=== PATIENT | female | born 1990 | race Caucasian/White ===

== ENCOUNTER 2017-01-12 07:01 | Inpatient (IN) | payer BC ==
[2017-01-12] MEDS ORDERED: LIDOCAINE HCL 50 ML VIAL PERI PRN (07:57)
[2017-01-12] MEDS ORDERED: RINGERS SOLUTION,LACTATED 1,000 ML IV ONE (07:57)
[2017-01-12] MEDS ORDERED: OXYTOCIN/DEXTROSE 5%-WATER 30 UNITS/500 ML BAG IV ONE (07:57)
[2017-01-12] MEDS ORDERED: MISOPROSTOL 100 MCG TABLET VG PRN (08:13)
[2017-01-12 08:14] LABS: Hematocrit 35.4 % (37.0-47.0); Hemoglobin 10.8 gm/dL (12.5-16.0); Mean Corpuscular Hemoglobin 23.2 pg (27-31); Mean Corpuscular Hgb Conc 30.5 g/dl (32-36); Mean Platelet Volume 11.3 fl (6.0-9.5); Neutrophil # 8.7 K/mm3 (1.3-6.0); Neutrophil % 75.4 % (42-75.0); Platelet Count 274 K/mm3 (150-450); Red Blood Count 4.66 M/mm3 (4.2-5.4); Red Cell Distribution Width 15.1 % (11.5-14.0); White Blood Count 11.5 K/mm3 (4.0-10.5)
[2017-01-12] MEDS: RINGERS SOLUTION,LACTATED 1,000 ML IV PRN ×2 (13:49→21:29)
--- NOTE | 2017-01-12 16:52 | PN ---
Subjective - Date and Time Seen Date: 01/12/17 Subjective Narrative: Labor note. Patient seen at admission and at 4 pm. 26 yo, CF, G1 at 40 6/7 weeks, admitted for induction for post date. cervix: 2/50/-2 at admission. GBS negative. s/p Cytotec 25 mg pv x 1 (placed at 8:30 am) currently on pitocin at 4 mu/min Contractions: q2-3 min. Rated pain 3/10 at the time. FHR: reassuring, 130s with accels. Cervix: 2/50/-1, head down a little bit and cervix less posterior. Plan: will continue pitocin as tolerated. Tyrone Roberson MD Objective - Abnormal Lab Findings Abnormal Lab Findings: Abnormal Lab Results 01/12/17 Range/Units 08:10 WBC 11.5 H (4.0-10.5) K/mm3 Hgb 10.8 L (12.5-16.0) gm/dL Hct 35.4 L (37.0-47.0) % MCV 76.0 L (78-100) fl MCH 23.2 L (27-31) pg MCHC 30.5 L (32-36) g/dl RDW 15.1 H (11.5-14.0) % MPV 11.3 H (6.0-9.5) fl Immature Gran # (Auto) 0.05 H (0.000-0.0310) K/mm3 Neutrophils % 75.4 H (42-75.0) % Lymphocytes % 15.8 L (20-51) % Neutrophils # 8.7 H (1.3-6.0) K/mm3
--- NOTE | 2017-01-12 18:20 | PN ---
Subjective - Date and Time Seen Date: 01/12/17 Subjective Narrative: Labor note. Patient seen and evaluated. 26 yo, CF, G1 at 40 6/7 weeks, admitted for induction for post date. cervix: 2/50/-2 at admission. GBS negative. s/p Cytotec 25 mg pv x 1 (placed at 8:30 am) currently on pitocin at 8 mu/min has been paulette all day q2-3 min and now q2 min. FHR: overall reassuring, but baseline appeared to go up to 180s, could be a prolonged accels. Cervix: 2/50/-1. made minimal cervical change manager 8-10 hours despite regular contractions. Pubic arch appeared narrow. discussed she is still in the latent phase of labor, but if she continued to make no change in the next 4-6 hours, she is at risk of a section. Patient and voiced understanding. All questions answered. Plan: attempted to place a Palmer bulb to aid pitocin for induction, but was not able to pass the Palmer bulb through the cervix entirely. will continue pitocin as tolerated. Tyrone Roberson MD Objective - Abnormal Lab Findings Abnormal Lab Findings: Abnormal Lab Results 01/12/17 Range/Units 08:10 WBC 11.5 H (4.0-10.5) K/mm3 Hgb 10.8 L (12.5-16.0) gm/dL Hct 35.4 L (37.0-47.0) % MCV 76.0 L (78-100) fl MCH 23.2 L (27-31) pg MCHC 30.5 L (32-36) g/dl RDW 15.1 H (11.5-14.0) % MPV 11.3 H (6.0-9.5) fl Immature Gran # (Auto) 0.05 H (0.000-0.0310) K/mm3 Neutrophils % 75.4 H (42-75.0) % Lymphocytes % 15.8 L (20-51) % Neutrophils # 8.7 H (1.3-6.0) K/mm3
[2017-01-13] MEDS: RINGERS SOLUTION,LACTATED 1,000 ML IV PRN (05:35)
[2017-01-13] MEDS ORDERED: DEXTROSE 5%-LACTATED RINGERS 1,000 ML IV PRN (06:26)
--- NOTE | 2017-01-13 08:06 | PN ---
Subjective - Date and Time Seen Date: 01/13/17 Subjective Narrative: Indication for : 26 yo, CF, G1 at 41 weeks, induced for over 24 hours with arrest of dilatation and descent for over 20 hours. Cervix remained at 2 cm, 60% and -2 despite regular contractions the entire time. Patient agreed to proceed for . Risks and benefits discussed with patient. Patient accepted the risks for planned . Tyrone Roberson MD Objective - Abnormal Lab Findings Abnormal Lab Findings: Abnormal Lab Results 01/12/17 Range/Units 08:10 WBC 11.5 H (4.0-10.5) K/mm3 Hgb 10.8 L (12.5-16.0) gm/dL Hct 35.4 L (37.0-47.0) % MCV 76.0 L (78-100) fl MCH 23.2 L (27-31) pg MCHC 30.5 L (32-36) g/dl RDW 15.1 H (11.5-14.0) % MPV 11.3 H (6.0-9.5) fl Immature Gran # (Auto) 0.05 H (0.000-0.0310) K/mm3 Neutrophils % 75.4 H (42-75.0) % Lymphocytes % 15.8 L (20-51) % Neutrophils # 8.7 H (1.3-6.0) K/mm3
[2017-01-13] MEDS ORDERED: OXYTOCIN 20 UNITS in RINGERS SOLUTION,LACTATED 1,000 ML IV ONE (08:16)
[2017-01-13] MEDS ORDERED: ceFAZolin SODIUM/DEXTROSE,ISO 2 GM/50 ML BAG IV ONE (08:30)
[2017-01-13] MEDS ORDERED: RINGERS LACTATED IV ONE ×3 (09:20→11:00)
[2017-01-13] MEDS ORDERED: RINGERS SOLUTION,LACTATED 1,000 ML IV ONE (09:20)
[2017-01-13] MEDS ORDERED: OXACILLIN SODIUM IV ONE (09:20)
[2017-01-13] MEDS ORDERED: ceFAZolin SODIUM 1 GM VIAL IV ONE (09:35)
[2017-01-13] MEDS ORDERED: HYDROcodone/ACETAMINOPHEN 1 EACH TABLET PO PRN (10:56)
[2017-01-13] MEDS ORDERED: ONDANSETRON HCL/PF 2 MG/ML VIAL IV PRN (10:56)
[2017-01-13] MEDS ORDERED: KETOROLAC TROMETHAMINE 30 MG/ML VIAL IV PRN (10:56)
[2017-01-13] MEDS ORDERED: SIMETHICONE 80 MG TAB.CHEW PO PRN (10:56)
[2017-01-13] MEDS ORDERED: SENNOSIDES 8.6 MG TABLET PO PRN (10:56)
[2017-01-13] MEDS ORDERED: BISACODYL 10 MG SUPP.RECT RC PRN (10:56)
[2017-01-13] MEDS ORDERED: diphenhydrAMINE HCL 25 MG CAPSULE PO PRN (10:56)
--- NOTE | 2017-01-13 10:59 | OR ---
Operative Report - Dictated Report Narrative: DATE OF PROCEDURE: 01/13/2017 PROCEDURE: 1. Primary low transverse section ANESTHESIA: Spinal. PREOPERATIVE DIAGNOSES: 1. Intrauterine at 41 0/7 weeks 2. Failed induction for post date 3. Arrest of dilatation and decent. POSTOPERATIVE DIAGNOSES: 1. Intrauterine at 41 0/7 weeks 2. Failed induction for post date 3. Arrest of dilatation and decent. SURGEON: Tyrone Roberson M.D. DISABILITY PROGRAM NAVIGATOR: Regina FINDINGS: 1. Female , cephalic presentation, clear amniotic fluid, weight 4083 g, 8/8, time of delivery: 10:06 2. Normal uterus, and normal bilateral ovaries and tubes SPECIMENS: none DRAIN: Palmer to gravity. URINE OUTPUT: 300 ml. BLOOD LOSS: 200 ml. IV FLUIDS: 1300 ml COMPLICATIONS: None. Description of Operative Procedure: The patient failed to make cervical change and descent for over 20 hours and remained at 2 cm and -2 station despite regular contractions on pitocin all day and night. She consented to the operation and was taken to the operating room. Spinal anesthesia was performed without complications. The patient was then placed in the dorsal supine position with leftward tilt. Sequential compression device was placed on the lower extremities and a Palmer catheter was placed into the bladder using sterile technique. Two grams of Ancef was given prior to the start of anesthesia. The abdomen was prepped with Chloraprep and draped in the usual sterile fashion. A time-out was conducted to confirm the correct patient for the correct procedure. Anesthesia was tested and appeared adequate. A Pfannenstiel incision was marked and then made with a scalpel. The incision was carried through the subcutaneous layer to the fascia. The fascia was nicked at the midline and extended bilaterally. The lower edge of the fascia incision was grasped with Lashell clamps, elevated, and the underlying rectus muscles were dissected off. The Lashell clamps were repositioned to the upper edge of the fascia incision, which was tented up and dissected off from the rectus muscles. The rectus muscles were in the midline. The peritoneum was entered bluntly with a finger. The peritoneal incision was extended superiorly and inferiorly with good visualization of the bladder. A bladder blade was inserted. The lower uterine segment was incised in a transverse fashion with the scalpel, and the incision was extended laterally by stretching. The amniotic sac was ruptured with clear fluid. The bladder blade was removed. The baby was in cephalic presentation. The head was elevated, flexed and brought through the incision. Fundal pressure was applied and baby was delivered atraumatically. The cord was clamped and cut. Cord blood was obtained. The placenta was removed manually. The uterus was then exteriorized , and cleared off clots and membrane. The uterine incision was closed with 0 vicryl in a running-lock fashion. A second imbricating layer was placed with 2- 0 Vicryl in a continuous non-lock fashion. Good hemostasis and reapproximation were obtained. The posterior cul-de-sac was cleared off clots and fluid. The uterus was returned to the abdomen. The gutters were cleared of blood clots and fluid. The peritoneum was closed with 2-0 Vicryl. The rectus muscle was inspected for bleeders and none was found. The fascia was reapproximated with # 1 Vicryl in a running fashion. The subcutaneous layer was irrigated with saline. The skin was closed with 3-0 Monocryl suture in a subcuticular fashion. Benzoid and Steri strips were applied to incision. Telfa and ABD were placed over the incision with pressuring dressing. The patient tolerated the procedure well. Sponge, lap, needle and instrument counts were correct.The patient was taken to the recovery room in stable condition. Tyrone Roberson MD History for MU Definition: * The number of deliveries resulting in a live the patient experienced prior to current hospitalization * The previous delivery of live twins or any live multiple gestation is considered one live event. *If primagravida or nulliparous is documented select zero for the number of previous live births. Live Events: 0
[2017-01-13] MEDS ORDERED: OXYTOCIN IV ONE ×2 (11:00)
[2017-01-13] MEDS: HYDROcodone/ACETAMINOPHEN 1 EACH TABLET PO PRN ×3 (14:06→21:58)
[2017-01-13] MEDS ORDERED: RHO(D) IMMUNE GLOBULIN 300 MCG DISP.SYRIN IM ONE (18:00)
[2017-01-13] MEDS: IBUPROFEN 800 MG TABLET PO PRN (18:54)
[2017-01-13] MEDS: DOCUSATE SODIUM 100 MG CAPSULE PO SCH (21:46)
[2017-01-14] MEDS: HYDROcodone/ACETAMINOPHEN 1 EACH TABLET PO PRN ×7 (01:19→23:09)
[2017-01-14] MEDS: IBUPROFEN 800 MG TABLET PO PRN ×4 (01:19→19:35)
[2017-01-14 06:03] LABS: Hematocrit 29.9 % (37.0-47.0); Hemoglobin 9.3 gm/dL (12.5-16.0); Mean Cell Volume 75.9 fl (78-100); Mean Corpuscular Hemoglobin 23.6 pg (27-31); Mean Corpuscular Hgb Conc 31.1 g/dl (32-36); Mean Platelet Volume 10.5 fl (6.0-9.5); Neutrophil # 8.8 K/mm3 (1.3-6.0); Neutrophil % 74.2 % (42-75.0); Platelet Count 239 K/mm3 (150-450); Red Blood Count 3.94 M/mm3 (4.2-5.4); Red Cell Distribution Width 15.6 % (11.5-14.0); White Blood Count 11.9 K/mm3 (4.0-10.5)
[2017-01-14] MEDS ORDERED: BACITRACIN TP PRN ×3 (10:00)
[2017-01-14] MEDS ORDERED: [UNRECOGNIZED DRUG - OTHER] TP PRN ×3 (10:00)
[2017-01-14] MEDS ORDERED: HYDROCORTISONE TP PRN ×3 (10:00)
[2017-01-14] MEDS ORDERED: POLYMYXIN B TP PRN ×3 (10:00)
[2017-01-14] MEDS ORDERED: NEOMYCIN TP PRN ×3 (10:00)
[2017-01-14] MEDS ORDERED: CLOTRIMAZOLE TP PRN ×3 (10:00)
--- NOTE | 2017-01-14 10:37 | PN ---
Subjective - Date and Time Seen Date: 01/14/17 Subjective Narrative: POD#1, s/p primary c/s for failure to progress. doing well. Palmer out. Took a shower today. . Normal lochia. ambulating well. Objective - Vitals Vitals: Last Vital Signs Temp 36.7 C 01/14/17 09:50 Pulse 107 H 01/14/17 09:50 Resp 18 01/14/17 09:50 BP 119/76 01/14/17 09:50 Pulse Ox 100 01/14/17 02:05 - Abnormal Lab Findings Abnormal Lab Findings: Abnormal Lab Results 01/14/17 Range/Units 06:01 WBC 11.9 H (4.0-10.5) K/mm3 RBC 3.94 L (4.2-5.4) M/mm3 Hgb 9.3 L (12.5-16.0) gm/dL Hct 29.9 L (37.0-47.0) % MCV 75.9 L (78-100) fl MCH 23.6 L (27-31) pg MCHC 31.1 L (32-36) g/dl RDW 15.6 H (11.5-14.0) % MPV 10.5 H (6.0-9.5) fl Immature Gran # (Auto) 0.05 H (0.000-0.0310) K/mm3 Lymphocytes % 16.3 L (20-51) % Neutrophils # 8.8 H (1.3-6.0) K/mm3 - Exam Constitutional: Present: Alert, Oriented x3, Cooperative Respiratory: Present: no respiratory distress Cardiovascular/Chest: Present: normal peripheral pulses Abdomen: Present: soft, nondistended, other - fundus firm. Incision dry and clean Extremity: Present: normal range of motion, no pedal edema, no calf tenderness Skin Exam: Present: normal color, warm/dry, no cyanosis Eye contact: Present: cooperative, good eye contact, normal speech Cauti Physician Documentation - Urinary Catheter Management Urethral (Palmer) Date of Insertion: 01/13/17 Time of Insertion: 09:35 Date of Removal: 01/13/17 Time of Removal: 22:00 Assessment/Plan Plan Narrative: A: POD#1, s/p primary c/s for FTP. Plan: routine post op care. ambulation encouraged. Kaichun Da, MD
[2017-01-14] MEDS: DOCUSATE SODIUM 100 MG CAPSULE PO SCH ×2 (11:55→23:09)
[2017-01-15] MEDS: HYDROcodone/ACETAMINOPHEN 1 EACH TABLET PO PRN ×5 (03:22→20:28)
[2017-01-15] MEDS: IBUPROFEN 800 MG TABLET PO PRN ×3 (03:22→17:32)
[2017-01-15] MEDS: DOCUSATE SODIUM 100 MG CAPSULE PO SCH ×3 (07:26→20:27)
--- NOTE | 2017-01-15 10:00 | PN ---
Subjective - Date and Time Seen Date: 01/15/17 Time: 09:55 Subjective Narrative: no complaints, pain controlled, lochia small, voiding, ambulating, tolerating regular diet, . Objective Objective Narrative: afebrile, VSS - Review of Systems Generalized/Overall Review: Reports: No Symptoms Reported Respiratory: Reports: No Symptoms Reported Cardiac: Reports: No Symptoms Reported Abdominal: Reports: No Symptoms Reported Genitourinary Symptoms: Reports: No Symptoms Reported Musculoskeletal Complaints: Reports: No Symptoms Reported Neurological: Reports: No Symptoms Reported Endocrine: Reports: No Symptoms Reported - Vitals Vitals: Last Vital Signs Temp 36.9 C 01/15/17 07:40 Pulse 106 H 01/15/17 07:40 Resp 98 H 01/15/17 07:40 BP 119/70 01/15/17 07:40 Pulse Ox 98 01/15/17 07:40 - Exam Exam Narrative: Incision dry, intact, no redness or induration, fundus firm, below umbilicus Constitutional: Present: Alert, Oriented x3, Cooperative, No distress Respiratory: Present: lungs clear Abdomen: Present: Normal bowel sounds, soft, nondistended Skin Exam: Present: normal color, warm/dry Cauti Physician Documentation - Urinary Catheter Management Urethral (Palmer) Urethral Indwelling: No Date of Insertion: 01/13/17 Time of Insertion: 09:35 Date of Removal: 01/13/17 Time of Removal: 22:00 Assessment/Plan Plan Narrative: doing well, POD#2 s/p primary . Continue routine care. - Problems/Diagnosis (1) Status post primary low transverse section Problem: Acute
[2017-01-16] MEDS: IBUPROFEN 800 MG TABLET PO PRN (02:38)
[2017-01-16] MEDS: HYDROcodone/ACETAMINOPHEN 1 EACH TABLET PO PRN (02:38)
[2017-01-16 07:35] VITALS: BP 118/79
--- NOTE | 2017-01-16 09:44 | DS ---
(1) Status post primary low transverse section Problem: Acute (2) Failure to progress in labor Problem: Acute Description of Stay: patient received pitocin induction of labor for > 20 hours with no progression beyond 2cm dilation, so underwent primary low cervical transverse section on 01/13/[address] Roberson with delivery of a viable female , weight of 4083 gms, apgars of 8 and 8, under spinal anesthesia. Postop, the patient did well. She remained afebrile. She was advanced on her diet and activity. At the time of discharge she is ambulating, voiding and tolerating a regular diet. Her incision is dry and intact and she is . Procedures Performed: see notes below List Procedures: Pitocin induction of labor, primary low cervical transverse , spinal anesthesia Results and Findings: Viable 4083 gm female Discharge Disposition: Home self care Disposition: Home self-care Condition: Good Discharge Activity: No Lifting Discharge Diet: General/regular food Problem Oriented Discharge Instructions to Patient/Family: Well [employer] - , Delivery, Care After Additional Patient Instructions (free text): [facility] follow up appointment is TuesdayJanuary 19 at 0930 then a 6 week follow up on TuesdayFebruary 25 at 0900, both with Dr. Roberson. [facility] follow up appointment is TuesdayJanuary 18 at 11:[address] Venegas. Please bring check for $40 for the Certificate to the [facility] before or after this appointment. [facility] blood type is O+, Discharge weight is 8 pounds 6.9 ounces. TCB 2.1 at 66 hours of life. Nurse Mariana every 2 to 3 hours, watch for her hunger cues. Please do not hesitate to call Jojo with any questions or concerns. Always lay Mariana on her back to sleep in her own bed. Thank you for choosing [facility]. If you need anything please call [facility] [phone], Place [phone]. Dr. Venegas Prescriptions (Any new or edited meds): HYDROcodone/ACETAMINOPHEN [[place] 5-325] 1 each PO Q3H PRN #30 tablet PRN Reason: Moderate Pain Complete Home Medications List: Complete Home Medication List: Vit#96/Ferrous Fum/FA [ S] 1 tab PO DAILY 01/12/17 Clotrimazole [Lotrimin Cream] 0.33 appl TP PRN PRN #0 tube 01/16/17 HYDROcodone/ACETAMINOPHEN [[place] 5-325] 1 each PO Q3H PRN #30 tablet 01/16/17 Hydrocortisone [Hydrocortisone 1% Cream] 0.33 appl TP PRN PRN #0 tube 01/16/17 Neomycin/Bacitracin/Polymyxinb [Neosporin Ointment] 0.34 appl TP PRN PRN #0 tube 01/16/17
== END 2017-01-16 11:42 | disposition home or self-care (01) | DRG 766 ==
LOC: OB 07:01 → MS 01-14 09:30
PROVIDERS: ADMIT Obstetrics & Gynecology; ATTEND Obstetrics & Gynecology
PROC: 4A1HXCZ Monitoring of Products of Conception, Cardiac Rate, External Approach (ICD-10-PCS; 2017-01-13)
PROC: 10D00Z1 Extraction of Products of Conception, Low, Open Approach (ICD-10-PCS; principal; 2017-01-13 09:20)
DX: O62.0 Primary inadequate contractions (principal); O62.1 Secondary uterine inertia; O48.0 Post-term pregnancy; O32.4XX0 Maternal care for high head at term, not applicable or unspecified; Z3A.41 41 weeks gestation of pregnancy; Z37.0 Single live birth
CPT/HCPCS: 36415; 59025; 59510; 85025; 85460; 86850; 86900; J2790

== ENCOUNTER 2018-07-19 04:00 | Inpatient (IN) ==
[2018-07-19] MEDS ORDERED: RINGER'S SOLUTION,LACTATED 1,000 ML IV PRN ×2 (04:12→05:00)
[2018-07-19] MEDS ORDERED: ceFAZolin SODIUM/DEXTROSE,ISO 2 GM/50 ML BAG IV ONE ×2 (04:12→05:00)
[2018-07-19] MEDS ORDERED: OXYTOCIN 20 UNITS in RINGER'S SOLUTION,LACTATED 1,000 ML IV ONE ×2 (04:12→08:34)
[2018-07-19 05:06] LABS: Cocaine Ur Negative (NEGATIVE); Urine Barbiturate Negative (NEGATIVE); Urine Benzodiazepines Negative (NEGATIVE); Urine Opiates Negative (NEGATIVE); Urine PCP Negative (NEGATIVE); Urine THC Negative (NEGATIVE)
--- NOTE | 2018-07-19 07:28 | ANES ---
Anesthesia Pre Procedure Eval Vitals/Labs: Last Vital Signs Temp 36.6 C 07/19/18 04:30 Pulse 78 07/19/18 04:30 Resp 16 07/19/18 04:30 BP 120/77 07/19/18 04:30 Pulse Ox 99 07/19/18 04:30 HOME MEDICATIONS Vits96/Iron Fum/Folic [ S] 1 tab PO DAILY 01/12/17 [Last Taken Unknown] Allergies/Adverse Reactions: Allergies Allergy/AdvReac Type Severity Reaction Status Date / Time No Known Allergies Allergy Verified 07/19/18 04:32 - Planned Procedure Planned Procedure: Repeat Section Medication List Reviewed:: Yes Allergies Verified: Yes Medical History (Last Reviewed 07/19/18 @ 07:26 by Albaro Fernando CRNA) Vulvovaginitis Onset Date: Unknown Surgical History (Last Reviewed 07/19/18 @ 07:26 by Albaro Fernando CRNA) H/O oral surgery Onset Date: ~2008 Previous section Onset Date: 01/13/17 failure to progress Family History (Last Reviewed 07/19/18 @ 07:26 by Albaro Fernando CRNA) Father Alive and well Grandfather , paternal Liver failure Grandmother , maternal Stomach cancer Mother Diabetes diet controlled - Family Anesthesia History Family History:: no untoward family reactions to anesthesia, no familial bleeding tendencies, no family history of clotting disorders, no family history of premature - Airway/Neck/Teeth Within Normal Limits:: Yes Teeth Condition: Intact Mallampatti Score: 1 Thyromental (T-M) distance: > 6 cm Mandibulo Hyoid distance: > 3 cm - Respiratory Respiratory: chest non-tender, lungs clear Smoking Status: Never smoker Sleep Apnea currently treated: No Sleep Apnea by current assessment: No Comments:: GERD during , not currently an issue - Cardiovascular Patient History - Cardiac/Respiratory: No pertinent hx Heart Sounds: S1 & S2, Regular - Anesthesia Assessment and Plan ASA Class: PS, II Anesthesia Type Plan: Block - TAP block bilateral For post op pain relief, Spinal Planned difficult intubation/equipment available: No
[2018-07-19] MEDS: OXYTOCIN 20 UNITS in RINGER'S SOLUTION,LACTATED 1,000 ML IV ONE ×2 (08:10→10:21)
[2018-07-19] MEDS ORDERED: KETOROLAC TROMETHAMINE 30 MG/ML VIAL IV PRN (08:34)
[2018-07-19] MEDS ORDERED: ACETAMINOPHEN 325 MG TABLET PO PRN (08:34)
[2018-07-19] MEDS ORDERED: ONDANSETRON HCL/PF 2 MG/ML VIAL IV PRN (08:34)
[2018-07-19] MEDS ORDERED: RINGER'S SOLUTION,LACTATED 1,000 ML IV ONE (08:34)
[2018-07-19] MEDS ORDERED: BISACODYL 10 MG SUPP.RECT RC PRN (08:34)
[2018-07-19] MEDS ORDERED: oxyCODONE HCL/ACETAMINOPHEN 1 TAB TABLET PO PRN (08:34)
[2018-07-19] MEDS ORDERED: SENNOSIDES 8.6 MG TABLET PO PRN (08:34)
[2018-07-19] MEDS ORDERED: diphenhydrAMINE HCL 25 MG CAPSULE PO PRN (08:34)
--- NOTE | 2018-07-19 08:59 | ANES ---
Post Anesthesia Discharge - Transfer of Care Transfer of Care handoff given to nurse: Yes - Discharge from PACU Discharge from PACU when meets criteria: Yes - Comfortable in PACU. - Anesthesia Post Op Note Anesthesia Post Op Note: TAP block notes in ultrasound report.
--- NOTE | 2018-07-19 08:59 | ANES ---
Anesthesia Procedure Note Procedure Note: ANESTHESIA PROCEDURE NOTE Date of Procedure: 07/19/2018 Time of procedure: 8:45 AM. Performed by: ANNA Prakash CRNA, MSN Organizational Effectiveness Consultant: Bee Pate RN. Preprocedure diagnosis: Post section pain. Post procedure diagnosis: Same. Procedure: Bilateral TAP block Indications: Post section pain relief. Findings: See below. Details of the procedure: The patient was brought to PACU and placed in the supine position. The patient was prepped with chlorhexidine and using ultrasound guidance the 3 abdominal muscular planes were identified and lidocaine 1% was infiltrated to the skin of the intended injection site. Under ultrasound guidance the the internal oblique and transverse this abdominis muscle layers were approached with visualization of a 4 inch block needle until the tip of the needle rested in the plane between the muscles. 25 mL bupivacaine 0.5% with 1-200,000 epinephrine was injected and the procedure was repeated on the other side. Please see radiology/ultrasound report for details and images of the procedure. EBL: 0 Fluids: N/A. Specimen: N/A. Post procedure condition: The patient tolerated the procedure well. No complications were noted. Thank you for this consultation. Albaro Fernando CRNA, MSN
--- NOTE | 2018-07-19 09:00 | OR ---
Operative Report - Dictated Report Narrative: Date of delivery: 07/19/2018 Time of delivery: 808 Gender: female Birthweight: 3420 grams APGARS: 8/8 Preoperative diagnosis: History of delivery x1 Postoperative diagnosis: same Procedure: repeat delivery Surgeon: Dr. Link Anesthesia: spinal Anesthesiologist: Albaro Fernando CRNA Indications for the procedure: The patient is a 27 year old who presented to labor and delivery for a repeat delivery. All risks, benefits, and alternatives of the procedure were explained to the patient and she consented to the procedure. Description of the procedure: The patient was taken to the operating room where spinal anesthesia was induced. She was then prepped and draped in the lithotomy position in the standard surgical fashion. The patient was then prepped and draped in the standard surgical fashion in the supine position. Attention was then turned to the abdomen. A Pfannestiel skin incision was made and the incision was carried through the subcutaneous tissue. The fascia was incised in the mildline. The fascia was noted to be weak and almost nonexistent in the midline with omentum and peritoneum visible prior to dissecting the fascia off. The fascia was dissected off the underlying rectus muscle. The peritoneum was entered bluntly. A large Saurabh O retractor was placed. The lower uterine segment was incised in a transverse fashion. The head was then delivered. A loose nuchal cord was reduced. The rest of the was delivered atraumatically and handed off to the attendant pediatric staff. The uterus was cleaned of all clots and debris. The uterine incision was closed with 0-vicryl continuous interlocking suture. An additional figure of eight suture was placed in the edge of the incision for additional hemostasis. Hemostasis was adequate. The fascia was closed with 1-0 vicryl. The subcutaneous tissue was irrigated and hemostasis was obtained. The skin was closed with 3-0 monocryl on a Gabe needle. Benzoin and steri strips were placed over the incision. All sponge, lap, and needle counts were correct. The patient tolerated the procedure well. She was transferred to the recovery room in stable condition. EBL: 600 mL Complications: none
[2018-07-19] MEDS ORDERED: MISOPROSTOL 200 MCG TABLET RC ONE (09:55)
[2018-07-19 10:10] LABS: Hemoglobin 9.1 gm/dL (12.5-16.0); Mean Cell Volume 78.3 fl (78-100); Mean Corpuscular Hemoglobin 23.8 pg (27-31); Mean Corpuscular Hgb Conc 30.3 g/dl (32-36); Mean Platelet Volume 12.3 fl (8-12.5); Neutrophil # 10.6 K/mm3 (1.3-6.0); Platelet Count 215 K/mm3 (150-450); Red Blood Count 3.83 M/mm3 (4.2-5.4); Red Cell Distribution Width 14.5 % (11.5-14.0); White Blood Count 12.7 K/mm3 (4.0-10.5)
[2018-07-19] MEDS ORDERED: OXYTOCIN/DEXTROSE 5%-WATER 30 UNITS/500 ML BAG IV ONE (10:14)
[2018-07-19] MEDS ORDERED: ceFAZolin SODIUM/DEXTROSE,ISO 2 GM/50 ML BAG IV SCH (10:30)
--- NOTE | 2018-07-19 10:52 | ANES ---
Post Anesthesia Assessment - Vital Signs Vitals: Last Vital Signs Temp 36.6 C 07/19/18 09:05 Pulse 87 07/19/18 09:50 Resp 20 07/19/18 09:50 BP 96/61 07/19/18 09:50 Pulse Ox 99 07/19/18 09:50 Airway Patency: Normal - Mental Status Level Of Consciousness: Awake, Alert, Appropriate - Pain Level Pain Score: 0 - N/V Assessment Nausea/Vomiting Presence: None Dehydration:: No
--- NOTE | 2018-07-19 11:02 | PN ---
Progess Note - Interim Date: 07/19/18 Time: 10:58 Narrative: 07/19/18 10:58 Called to bedside by RN due to PPH. The initial EBL was 327 mL after her delivery. The total EBL after delivery was 800 mL. EBL during the was 600 mL. Therefore, total EBL is 1400 mL consistent with PPH. Pt was hypotensive but not tachycardic. She reported lightheadedness. I performed a manual uterine exploration with EBL as above. The uterus was full of clots and these were evacuated. Given manual uterine exploration I gave the patient an additional dose of Ancef to decreased her risk of endometritis. She received 30 units of pitocin and she will received an additional 30 units of pitocin. Cytotec 800mcg placed rectally by RN. The patient appeared stable after uterine evacuation. Hemoglobin was 9. Repeat CBC in AM
[2018-07-19] MEDS: oxyCODONE HCL/ACETAMINOPHEN 1 TAB TABLET PO PRN ×4 (11:33→21:55)
[2018-07-19] MEDS ORDERED: RHO(D) IMMUNE GLOBULIN 1,500 UNIT SYRINGE IM ONE (13:26)
[2018-07-19] MEDS: IBUPROFEN 800 MG TABLET PO PRN ×2 (14:41→21:28)
[2018-07-19] MEDS: DOCUSATE SODIUM 100 MG CAPSULE PO SCH ×2 (14:41→20:59)
[2018-07-19] MEDS: SIMETHICONE 80 MG TAB.CHEW PO PRN (15:23)
[2018-07-20] MEDS: oxyCODONE HCL/ACETAMINOPHEN 1 TAB TABLET PO PRN ×7 (00:58→23:04)
[2018-07-20] MEDS: IBUPROFEN 800 MG TABLET PO PRN ×4 (03:42→23:04)
[2018-07-20 07:19] LABS: Hematocrit 28.2 % (37.0-47.0); Hemoglobin 8.6 gm/dL (12.5-16.0); Mean Cell Volume 78.8 fl (78-100); Mean Corpuscular Hgb Conc 30.5 g/dl (32-36); Platelet Count 210 K/mm3 (150-450); Red Blood Count 3.58 M/mm3 (4.2-5.4); Red Cell Distribution Width 14.5 % (11.5-14.0); White Blood Count 12.2 K/mm3 (4.0-10.5)
[2018-07-20] MEDS: DOCUSATE SODIUM 100 MG CAPSULE PO SCH ×2 (09:12→20:50)
--- NOTE | 2018-07-20 09:13 | PN ---
Subjective - Date and Time Seen Date: 07/20/18 Time: 09:10 Subjective Narrative: The patient reports her vaginal bleeding is normal. She denies lightheadedness or dizziness. Objective Objective Narrative: See vital signs - Review of Systems Generalized/Overall Review: Reports: No Symptoms Reported Misc: All systems neg except as marked - Vitals Vitals: Last Vital Signs Temp 36.5 C 07/20/18 08:30 Pulse 120 H 07/20/18 08:30 Resp 12 07/20/18 08:30 BP 139/69 07/20/18 08:30 Pulse Ox 99 07/20/18 08:30 - Abnormal Lab Findings Abnormal Lab Findings: Abnormal Lab Results 07/19/18 07/20/18 Range/Units 10:05 07:10 WBC 12.7 H 12.2 H (4.0-10.5) K/mm3 RBC 3.83 L 3.58 L (4.2-5.4) M/mm3 Hgb 9.1 L 8.6 L (12.5-16.0) gm/dL Hct 30.0 L 28.2 L (37.0-47.0) % MCH 23.8 L 24.0 L (27-31) pg MCHC 30.3 L 30.5 L (32-36) g/dl RDW 14.5 H 14.5 H (11.5-14.0) % Immature Gran % (Auto) 0.70 H 0.50 H (0.001-0.429) % Immature Gran # (Auto) 0.09 H 0.06 H (0.000-0.0310) K/mm3 Neutrophils % 84.0 H (42-75.0) % Lymphocytes % 10.8 L 18.0 L (20-51) % Neutrophils # 10.6 H 9.0 H (1.3-6.0) K/mm3 Lymphocytes # 1.37 L (1.5-3.5) k/mm3 - Exam Constitutional: Present: Alert, Oriented x3, Cooperative, No distress Abdomen: Present: Normal bowel sounds, soft, nontender, nondistended Extremity: Present: normal range of motion, non-tender, no calf tenderness Skin Exam: Present: normal color, warm/dry, no cyanosis Appearance: Present: appropriate appearance Eye contact: Present: cooperative Thoughts: Present: normal thought pattern Cauti Physician Documentation - Urinary Catheter Management Urethral (Palmer) Urethral Indwelling: No Date of Insertion: 07/19/18 Time of Insertion: 07:55 Date of Removal: 07/19/18 Time of Removal: 17:31 Assessment/Plan Plan Narrative: POD 1 s/p repeat delivery Doing well Desires discharge tomorrow Start PO iron
[2018-07-20] MEDS: PRENATAL VITS96/IRON FUM/FOLIC 1 TAB TABLET PO SCH (10:14)
[2018-07-20] MEDS: SIMETHICONE 80 MG TAB.CHEW PO PRN ×2 (10:47→13:56)
--- NOTE | 2018-07-20 12:53 | PN ---
Progess Note - Interim Date: 07/20/18 Time: 12:50 Narrative: 07/20/18 12:50 Called to bedside by RN due to steri strips falling and left side of the incision slightly open. Incision cleaned with gauze with sterile saline. Benzoin placed superior and inferior to the incision. Steri strips placed perpendicular to the incision and the left side of the incision was reinforced with the steri strips parallel to the incision. The patient was updated with the plan of care.
[2018-07-20] MEDS ORDERED: FERROUS SULFATE 325 MG TABLET PO SCH (17:00)
[2018-07-21] MEDS: oxyCODONE HCL/ACETAMINOPHEN 1 TAB TABLET PO PRN ×2 (02:02→07:03)
[2018-07-21] MEDS: PRENATAL VITS96/IRON FUM/FOLIC 1 TAB TABLET PO SCH (07:03)
[2018-07-21] MEDS: DOCUSATE SODIUM 100 MG CAPSULE PO SCH (07:03)
[2018-07-21 07:18] VITALS: BP 107/66
--- NOTE | 2018-07-21 07:37 | PN ---
Subjective - Date and Time Seen Date: 07/21/18 Time: 07:35 Subjective Narrative: The patient reports her vaginal bleeding is normal. She denies lightheadedness or dizziness. Objective Objective Narrative: See vital signs - Review of Systems Generalized/Overall Review: Reports: No Symptoms Reported Misc: All systems neg except as marked - Vitals Vitals: Last Vital Signs Temp 36.6 C 07/21/18 07:00 Pulse 98 07/21/18 07:00 Resp 20 07/21/18 07:00 BP 107/66 07/21/18 07:00 Pulse Ox 98 07/21/18 07:00 - Exam Constitutional: Present: Alert, Oriented x3, Cooperative, No distress Skin Exam: Present: normal color, warm/dry, no cyanosis Appearance: Present: appropriate appearance Eye contact: Present: cooperative Thoughts: Present: normal thought pattern Cauti Physician Documentation - Urinary Catheter Management Urethral (Palmer) Urethral Indwelling: No Date of Insertion: 07/19/18 Time of Insertion: 07:55 Date of Removal: 07/19/18 Time of Removal: 17:31 Assessment/Plan Plan Narrative: POD 2 s/p repeat delivery Doing well Discharge today
== END 2018-07-21 10:35 | disposition home or self-care (01) | DRG 787 ==
LOC: OB 04:00
PROVIDERS: ADMIT Obstetrics & Gynecology; ATTEND Obstetrics & Gynecology
CPT/HCPCS: 36415; 59025; 80307; 85025; 85460; 86850; 86900; G0479; J2790